=== PATIENT | male | born 1960 | race Caucasian/White ===

== ENCOUNTER 2018-08-03 22:43 | Inpatient (IN) | payer BC ==
[~2018-08-03] VITALS: Ht 177.8 cm; Wt 148.0 kg
[2018-08-03] MEDS ORDERED: ASPIRIN 81 MG CHEW TAB PO ONE (23:00)
[2018-08-03] MEDS ORDERED: NITROGLYCERIN 2% OINT 1 GM PKT TOP ONE (23:00)
[2018-08-03 23:37] LABS: BASOPHILS % 0.2 % (0.0-1.0); EOSINOPHILS # (AUTO) 0.2 (0.0-0.4); LYMPHOCYTES # (AUTO) 1.7 (1.0-3.2); LYMPHOCYTES % 15.4 % (18.0-39.1); MEAN CORPUSCULAR HEMOGLOBIN 29.4 pg (28-32); MEAN CORPUSCULAR HGB CONC 33.3 g/dL (31-35); MEAN CORPUSCULAR VOLUME 88.1 fL (81-99); MONOCYTES % 9.4 % (4.4-11.3); NEUTROPHILS # (AUTO) 7.8 (2.1-6.9); NEUTROPHILS % 72.6 % (38.7-80.0); PLATELET COUNT 247 x10e3/uL (140-360); RED BLOOD COUNT 5.45 x10e6/uL (4.3-5.7); RED CELL DISTRIBUTION WIDTH 13.6 % (11.7-14.4)
[2018-08-03 23:47] LABS: INR 0.86; PROTHROMBIN TIME 12.5 seconds (11.9-14.5)
[2018-08-03 23:48] LABS: PARTIAL THROMBOPLASTIN TIME 29.2 seconds (23.8-35.5)
[2018-08-03 23:57] LABS: ALANINE AMINOTRANSFERASE 19 IU/L (0-55); ALBUMIN 3.9 g/dL (3.5-5.0); ALKALINE PHOSPHATASE 96 IU/L (40-150); ANION GAP 15.8 mmol/L (8-16); BLOOD UREA NITROGEN 24 mg/dL (7-26); BUN/CREATININE RATIO 24 (6-25); CALCIUM 9.6 mg/dL (8.4-10.2); CARBON DIOXIDE 25 mmol/L (22-29); CHLORIDE 102 mmol/L (98-107); CREATINE KINASE 114 IU/L (30-200); CREATININE, SERUM 1.02 mg/dL (0.72-1.25); EST GLOMERULAR FILTRATION RATE > 60 ML/MIN (60-); GLUCOSE 156 mg/dL (74-118); POTASSIUM 3.8 mmol/L (3.5-5.1); SODIUM 139 mmol/L (136-145)
[2018-08-04] VITALS (9 sets, daily range): BP systolic 107–146; BP diastolic 63–78
--- NOTE | 2018-08-04 00:01 | Diagnostic Imaging Report ---
EXAMINATION: CHEST SINGLE (PORTABLE) INDICATION: CHEST PAIN COMPARISON: None FINDINGS: AP view TUBES and LINES: None. LUNGS: Lungs are well inflated. Lungs are clear. There is no evidence of pneumonia or pulmonary edema. PLEURA: No pleural effusion or pneumothorax. HEART AND MEDIASTINUM: The cardiomediastinal silhouette is unremarkable. BONES AND SOFT TISSUES: No acute osseous lesion. Soft tissues are unremarkable. UPPER ABDOMEN: No free air under the diaphragm. IMPRESSION: No acute thoracic abnormality. Signed by: DR. Gerald Alvarez MD on 08/03/2018 11:57 PM
[2018-08-04 00:03] LABS: BACTERIA,URINE FEW /HPF; BILIRUBIN,URINE NEGATIVE (NEGATIVE); CLARITY,URINE CLEAR (CLEAR); COLOR,URINE YELLOW (YELLOW); EPITHELIAL CELLS,URINE FEW /LPF; KETONES,URINE NEGATIVE (NEGATIVE); LEUKOCYTE ESTERASE ,URINE NEGATIVE (NEGATIVE); NITRITE,URINE NEGATIVE (NEGATIVE); PROTEIN,URINE DIPSTICK NEGATIVE (NEGATIVE); URINE UROBILINOGEN 0.2 mg/dL (0.2 - 1); WBC,URINE (MAN) 0-5 /HPF (0-5)
[2018-08-04 00:04] LABS: MUCUS,URINE MANY (RARE)
[2018-08-04] MEDS ORDERED: ONDANSETRON HCL INJ 2MG/ML 2ML 2 MG/ML VIAL IV PRN (00:45)
[2018-08-04] MEDS ORDERED: CLOPIDOGREL BISULFATE 75 MG TAB PO ONE (00:45)
[2018-08-04] MEDS ORDERED: SODIUM CHLORIDE FLUSH 10 ML SYR INJ PRN (00:45)
[2018-08-04] MEDS ORDERED: ASPIRIN 81 MG CHEW TAB PO ONE (00:45)
--- OUTSIDE RECORDS SUMMARY | 2018-08-04 00:56 | XMS REPORT ---
Author Author [facility] Address Unknown Phone Unavailable Care Team Providers Care Filler Feeder Name Role Phone Israel TIPTON Unavailable Unavailable Problems This patient has no known problems. Allergies, Adverse Reactions, Alerts This patient has no known allergies or adverse reactions. Medications This patient has no known medications. Results Test Description Test Time Test Comments Text Results Atomic Results Result Comments CHEST SINGLE (PORTABLE) 2018-08-03 23:56:00 [place] [address] Patient Name: ESTIVEN MARTE MR #: [id number] : 1960 Age/Sex: 57/M Req #: [id number] Adm Physician: Ordered by: MANUEL TIPTON MD Report #: [id number] Location: ER Room/Bed: Procedure: [id number] DX/CHEST SINGLE (PORTABLE) Exam Date: 08/03/18 Exam Time: 2320 REPORT STATUS: Signed EXAMINATION: CHEST SINGLE (PORTABLE) INDICATION: CHEST PAIN COMPARISON: None FINDINGS: AP view TUBES and LINES: None. LUNGS: Lungs are well inflated. Lungs are clear. There is no evidence of pneumonia or pulmonary edema. PLEURA: No pleural effusion or pneumothorax. HEART AND MEDIASTINUM: The cardiomediastinal silhouette is unremarkable. BONES AND SOFT TISSUES: No acute osseous lesion. Soft tissues are unremarkable. UPPER ABDOMEN: No free air under the diaphragm. IMPRESSION: No acute thoracic abnormality. Signed by: DR. Gerald Alvarez MD on 08/03/2018 11:57 PM Dictated By: GERALD ALVAREZ MD Transcribed By: ZULEYMA on 08/03/182356 COPY TO: MANUEL TIPTON MD
[2018-08-04] MEDS: FAMOTIDINE 20 MG/2 ML VIAL IV SCH ×3 (01:10→23:49)
[2018-08-04] MEDS ORDERED: ACETAMINOPHEN 325 MG TAB PO PRN (01:30)
[2018-08-04] MEDS ORDERED: ACETAMINOPHEN 325 MG TAB PO ONE (01:30)
--- NOTE | 2018-08-04 03:50 | NUR ---
Patient received via stretcher from ER accompanied by brother. Admission history obtained and Initial Physical assessment conducted. Patient is AAO x 4. Patient had no complaints of chest pain. Respirations even and non-labored. Telemetry in place. Patient oriented to room, call light and plan of care. Bed locked and in lowest position. Bed rails up x 2. Patient instructed to call for assistance when needed. Call light within reach.
--- NOTE | 2018-08-04 06:14 | NUR ---
Dr. George Lopez notified of "Routine Consult:. Reason for Consultation: Chest Pain
[2018-08-04] MEDS: NITROGLYCERIN 2% OINT 1 GM PKT TOP SCH ×2 (07:15→12:00)
--- NOTE | 2018-08-04 07:15 | NUR ---
Bedside rounding was completed and the pt. comp of headache from the nitrobid. He was medicated with tylenol for the headache and has no other complaints.
[2018-08-04 08:13] LABS: CREATINE KINASE MB 1.6 ng/mL (0-5.0)
[2018-08-04 08:56] LABS: THYROID STIMULATING HORMONE 1.074 uIU/mL (0.350-4.940)
[2018-08-04] MEDS: METOPROLOL TARTRATE 25 MG TAB PO SCH ×2 (09:19→17:28)
[2018-08-04] MEDS: ASPIRIN 81 MG ENTERIC COATED PO SCH (09:19)
[2018-08-04] MEDS: CLOPIDOGREL BISULFATE 75 MG TAB PO SCH (09:20)
--- NOTE | 2018-08-04 09:34 | Consultation ---
DATE OF CONSULTATION: August 04, 2018 REASON FOR CONSULTATION: Chest pain. CHIEF COMPLAINT: Chest pain. HPI: This is a 57-year-old male with a history of CAD, hypertension, hyperlipidemia. Patient presents to [facility] ER with 1-month history of chest pain. Reports it as substernal and radiates to his left arm with and without activities. Some degree of nausea and shortness of breath reported during the episodes. However, states it has been going on for the past month. Currently, the patient reports he is doing fine. No acute distress. Initial enzymes negative at 0.1. EKG showing nonspecific S/T changes. Patient reports that he has not been taking any kind of cardiac medications since over 8 years ago when he had his stents placed in [place], [place]. Currently, the patient is comfortable. No acute distress. PAST MEDICAL HISTORY: CAD, status post PCI about 8 years ago in [place], [place], hypertension, hyperlipidemia, obstructive sleep apnea. PAST SURGICAL HISTORY: Tonsillectomy and cardiac stents. SOCIAL HISTORY: He is . 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 Denies any tobacco use. Social alcohol use. FAMILY HISTORY: Mother apparently with complications of being a smoker. Father apparently from complications of lung cancer. HOME MEDICATIONS: None. ALLERGIES: MORPHINE. REVIEW OF SYSTEMS GENERAL: Denies any weight changes, any fatigue, weakness, fevers, chills, night sweats. SKIN: No rashes or bruises or sores. HEENT: Denies any vision changes, any blurred vision, double vision, any epistaxis, any soreness, sore throat, hoarseness, or sore neck. CARDIAC: Chest pain as above. Denies any palpitations. Positive for dyspnea on exertion. Denies any orthopnea, any PND or any lower extremity. RESPIRATORY: Positive for shortness of breath. Denies any coughing, hemoptysis. GI: Good appetite. No nausea, vomiting, diarrhea, constipation, any hematemesis, melena. URINARY: Denies any frequency, dysuria, nocturia. VASCULAR: Denies any lower extremity edema, claudication. MUSCULOSKELETAL: Reports good muscle strength throughout. Positive for generalized joint pains. NEUROLOGIC: Denies any numbness, tingling, tremors, weakness, paralysis, blackouts, seizures. HEMATOLOGY: Denies any anemia, easy bruising. ENDOCRINE: Denies any heat or cold intolerance, any polyuria, polydipsia. PHYSICAL EXAMINATION VITALS: Height 70 inches, weight 326 pounds, BMI 46. Temperature 96.8, pulse 63, respiratory rate 18, blood pressure 145/71, sats 95% on room air. GENERAL: Appears stated age. Reliable informant. No acute distress. SKIN: No rashes. No bruises. No sores. HEENT: Normocephalic. Pupils equal, round and reactive. Extraocular movements intact. Trachea midline. No JVD. No carotid bruits appreciated. HEART: Regular rate and rhythm. PMI about 4th to 5th intercostal space. LUNGS: Bilateral breath sounds clear to auscultation. ABDOMEN: Soft, nontender and nondistended. No organomegaly noted. MUSCULOSKELETAL: Good muscle strength throughout bilaterally. VASCULAR: Plus 2 bilateral radial pulses, +2 DP and PT pulses bilaterally. NEUROLOGIC: Cranial nerves II-XII seem intact. LABS: White count 10, hemoglobin 16, hematocrit 48, and platelets 247,000. Chemistry: Sodium 139, potassium 3.8, chloride 102, bicarb 25, BUN 24, creatinine 1.02. Troponin 0.1. Repeat 0.1. BNP 12. Chest x-ray with no acute thoracic abnormalities. EKG is normal sinus rhythm with nonspecific S/T changes. ASSESSMENT AND PLAN 1. Coronary artery disease with chest pain. 2. Hypertension. 3. Hyperlipidemia. 4. Obstructive sleep apnea. 5. Obesity. PLAN: Patient presents with a 1-month history of chest pains with mixed features. EKG is negative for any acute changes suggestive of an acute event. Cardiac enzymes negative times 2 thus far. Since the patient has not been on any medical therapy for the past 8 years, will start the patient on aggressive cardiac medical therapy of aspirin, Plavix, statin, beta julianna. The patient has been . Will go ahead and get an echo to evaluate heart function and structure. For the time being, as mentioned will proceed with aggressive medical therapy, and re-evaluate as clinical course dictates. Thank you very much for this consult. Will follow the patient's progression. DICTATED BY SHRUTI CANCINO NP Job#: [id number] PA
[2018-08-04] MEDS ORDERED: ENOXAPARIN SODIUM INJ 100 MG/ML SYR SC ONE (09:45)
--- NOTE | 2018-08-04 13:18 | History and Physical ---
CHIEF COMPLAINT: Chest pain. HISTORY OF PRESENT ILLNESS: This is a 57-year-old, morbidly obese, male who has a history of CAD with 2 stents placed about 8 years ago in [place], who comes into the ED with complaints of substernal chest pain ongoing for the last 6 weeks. The patient reports that he is originally from [place] and came here to do some work. Currently he is residing here. He is in the process of moving here to the [place] area. The patient reports that he has been having this substernal pressure and chest pain. It felt more like a pressure-like sensation with radiation to the left shoulder and arm. He denies any nausea or vomiting. Denies any palpitations. Patient was seen and evaluated at bedside on the medical floor. Currently doing well with no other complaints. REVIEW OF SYSTEMS PERTINENT POSITIVES: Chest pain, crushing. PERTINENT NEGATIVES: Denies any palpitations, nausea, vomiting, diarrhea, dysuria, hematuria, frequency, urgency, lightheadedness, dizziness, abdominal pain, headache, shortness of breath, cough, congestion, fever, or any other complaints. Rest of 14-point review of systems have been reviewed with the patient and are negative. ALLERGIES. MORPHINE. HOME MEDICATIONS: He does not take any. PAST MEDICAL HISTORY: CAD, status post PCI 8 years ago in [place], [place]. Hypertension, hyperlipidemia, obstructive sleep apnea. SURGICAL HISTORY: He had a left heart cath 8 years ago. He had tonsillectomy. FAMILY HISTORY: Hypertension and diabetes. SOCIAL HISTORY: No drugs. No alcohol. Does not smoke. 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 VITAL SIGNS: Temperature 96.3, pulse 82, respiratory rate 20, blood pressure 131/78, pulse ox 99% on room air. LAB FINDINGS: White count 10.7, hemoglobin 16, hematocrit 48, platelets 247. Coagulation: PT 12, INR 0.86, PTT 29. Chemistries: Sodium 139, potassium 2.8, chloride 102, bicarb 25, anion gap 15, BUN 24, creatinine 1. Glucose is 166. Calcium is 9.6. Total bilirubin 0.5, AST 17, ALT 19. Troponin is 0.107. BNP 12. Albumin 3.9. LDL was 139. TSH was 1. Urinalysis is negative. IMAGING STUDIES: Chest x-ray was found to be negative. PHYSICAL EXAMINATION GENERAL: Not in acute distress. Alert and oriented x3. Cooperative on examination. HEENT: Head is normocephalic, atraumatic. Eyes: Pupils are equal and reactive to light bilaterally. The extraocular movements are intact bilaterally. NECK: Supple. Good range of motion. Throat: No evidence of any erythema or exudates in the posterior pharynx. Has poor dentition. PULMONARY: Clear to auscultation bilaterally. No wheezing, no rales, no rhonchi, no crackles appreciated. CARDIOVASCULAR: Positive S1 and S2. No murmurs, rubs, or gallops appreciated. ABDOMEN: Soft. Nontender and nontender to palpation. Bowel sounds are present. MUSCULOSKELETAL: Strength is 5/5 throughout. No evidence of any musculoskeletal deficits on examination. No weakness appreciated. NEUROLOGICAL: Cranial nerves II through XII are grossly intact. No evidence of any neurological deficits on exam. SKIN: Intact. Warm to touch. Good cap refill. PSYCHIATRIC: Normal affect and mood. EXTREMITIES: No edema. Good range of motion throughout. IMPRESSION 1. Chest pain, rule out acute coronary syndrome with history of coronary artery disease in the past. 2. Hypertension. 3. Hyperlipidemia. 4. Obstructive sleep apnea. 5. Morbid obesity. PLAN: At this time he is scheduled for a left heart cath tomorrow by cardiology. Will continue the cardioprotective medications. He is n.p.o. after midnight. We will start on antihypertensive medications. Start on Lipitor for statin and aspirin as well. He will need a sleep study as an outpatient with a chief of safety and protection. Discussed diet and exercise with the patient. Will continue to follow with cardiology's recommendations. Likely after the cath tomorrow, if no complications, he will likely be discharged home. Otherwise, we will continue with the same plan of care and monitor closely. Job#: [id number]
[2018-08-04 16:01] LABS: CREATINE KINASE MB 1.3 ng/mL (0-5.0)
--- NOTE | 2018-08-04 19:39 | NUR ---
Received change of shift report from AM nurse. Bedside report received.
[2018-08-04] MEDS: ATORVASTATIN 20 MG TAB PO SCH (20:27)
--- NOTE | 2018-08-04 22:03 | NUR ---
Patient in sitting position in bed. Denies pain at this time. IV to left Ac dry and intact. Tele #[id number] SB 54. AAOx3 Ambulates with no difficulty noted. Patient NPO after MN. Patient is aware.
[2018-08-05] VITALS (24 sets, daily range): BP systolic 109–172; BP diastolic 52–96
--- NOTE | 2018-08-05 00:32 | NUR ---
Patient resting quitly at this time. Continue monitor.
--- NOTE | 2018-08-05 01:52 | NUR ---
Tele called and stated pt HR at 46 BPM. Check pt he was snoring with no noted discomfort. 15 min later pt states small pain =2 to left chest but not very bad. Patient refused pain meds at this time. HR back up to 70 BPM. Will report to .
[2018-08-05] MEDS ORDERED: SODIUM CHLORIDE 0.9% 1000ML 1,000 ML IV SCH (05:00)
[2018-08-05 05:27] LABS: BASOPHILS % 0.3 % (0.0-1.0); EOSINOPHILS # (AUTO) 0.4 (0.0-0.4); EOSINOPHILS % 3.6 % (0.0-6.0); HEMATOCRIT 48.4 % (38.2-49.6); HEMOGLOBIN 15.8 g/dL (14.0-18.0); LYMPHOCYTES # (AUTO) 2.1 (1.0-3.2); LYMPHOCYTES % 21.5 % (18.0-39.1); MEAN CORPUSCULAR HEMOGLOBIN 29.3 pg (28-32); MEAN CORPUSCULAR HGB CONC 32.6 g/dL (31-35); MEAN CORPUSCULAR VOLUME 89.6 fL (81-99); MONOCYTES # (AUTO) 1.1 (0.2-0.8); MONOCYTES % 11.4 % (4.4-11.3); NEUTROPHILS # (AUTO) 6.2 (2.1-6.9); NEUTROPHILS % 62.8 % (38.7-80.0); PLATELET COUNT 238 x10e3/uL (140-360); RED CELL DISTRIBUTION WIDTH 13.6 % (11.7-14.4)
--- NOTE | 2018-08-05 07:05 | NUR ---
RCD PT AT BED PT IS ALERT AND ORIENTED PT RESTING ON BED NO SIGNS OF ANY DISTRESS NOTED IV PATENT PT NPO FOR PROCEDURE BED LOW AND LOCKED CALL LIGHT IN REACH
--- NOTE | 2018-08-05 07:08 | NUR ---
Change of shift report given to incoming nurse.
[2018-08-05 08:21] LABS: ALANINE AMINOTRANSFERASE 16 IU/L (0-55); ALBUMIN 3.5 g/dL (3.5-5.0); ALBUMIN/GLOBULIN RATIO 1.1 (0.8-2.0); ALKALINE PHOSPHATASE 84 IU/L (40-150); CALCIUM 9.2 mg/dL (8.4-10.2); CARBON DIOXIDE 24 mmol/L (22-29); CHLORIDE 102 mmol/L (98-107); CHOL/HDL RATIO 4.7 (3.9-4.7); CHOLESTEROL 219 MD/DL (0-199); CREATININE, SERUM 0.78 mg/dL (0.72-1.25); EST GLOMERULAR FILTRATION RATE > 60 ML/MIN (60-); GLUCOSE 118 mg/dL (74-118); HDL CHOLESTEROL 47 MG/DL (40-60); LDL CHOLESTEROL 133 MG/DL (60-130); SODIUM 136 mmol/L (136-145); TRIGLYCERIDES 193 MG/DL (0-149)
[2018-08-05 08:32] LABS: BLOOD UREA NITROGEN 18 mg/dL (7-26); BUN/CREATININE RATIO 23 (6-25)
[2018-08-05] MEDS: METOPROLOL TARTRATE 25 MG TAB PO SCH ×2 (09:00→16:49)
[2018-08-05] MEDS: ASPIRIN 81 MG ENTERIC COATED PO SCH (09:00)
[2018-08-05] MEDS: CLOPIDOGREL BISULFATE 75 MG TAB PO SCH (09:00)
[2018-08-05] MEDS ORDERED: MIDAZOLAM HCL 2 MG/2 ML VIAL ONE (09:12)
[2018-08-05] MEDS ORDERED: SODIUM CHLORIDE 0.9% 1000ML 1,000 ML ONE (09:13)
[2018-08-05] MEDS ORDERED: IOPAMIDOL 370 MG/ML 200 ML INFUS..BTL INJ ONE ×2 (09:13→09:55)
[2018-08-05] MEDS ORDERED: LIDOCAINE HCL 2% LOCAL 20 ML VIAL ONE (09:13)
[2018-08-05] MEDS ORDERED: HEPARIN SOD/SOD CHLORIDE 2,000 ML ONE (09:13)
[2018-08-05] MEDS ORDERED: FENTANYL CITRATE/PF 100MCG/2 ML INJ ONE (09:13)
[2018-08-05] MEDS ORDERED: VERAPAMIL HCL 2.5 MG/ML 2 ML VIAL ONE (09:20)
--- NOTE | 2018-08-05 09:25 | NUR ---
PT WENT TO PROCEDURE IN SAFE CONDITION
[2018-08-05] MEDS ORDERED: SODIUM CHLORIDE 0.9% 50ML 50 ML ONE (09:49)
[2018-08-05] MEDS ORDERED: BIVALRIUDIN 250 MG/VIAL VIAL IV ONE (09:49)
[2018-08-05] MEDS ORDERED: ASPIRIN 325 MG TAB ONE (10:19)
[2018-08-05] MEDS ORDERED: CLOPIDOGREL BISULFATE 75 MG TAB ONE (10:19)
[2018-08-05] MEDS: SODIUM CHLORIDE 0.9% 1000ML 1,000 ML IV SCH ×2 (10:37→23:25)
[2018-08-05] MEDS ORDERED: HYDROCODONE/APAP 5MG-325MG TAB PO PRN (10:45)
[2018-08-05] MEDS ORDERED: ONDANSETRON HCL INJ 2MG/ML 2ML 2 MG/ML VIAL IV PRN (10:45)
--- NOTE | 2018-08-05 10:45 | NUR ---
Received report from Tabitha NIXON. Reviewed medications given, procedural events and orders. Patient awake,alert,and orientedx3. Respirations even and unlabored on room air. TR band to right wrist has 14 ml of air and appears to be without signs or symptoms of active bleeding at this time. Palpable right radial pulse. IV to left antecubital with normal saline infusing at 75ml/hr.
--- NOTE | 2018-08-05 12:18 | NUR ---
Removed 2ml of air from right wrist TR band. No signs of active bleeding to right wrist site at this time. Palpable right radial pulse. Patient tolerated well. No distress noted at this time.
--- NOTE | 2018-08-05 12:26 | Progress Note ---
DATE: August 05, 2018 MEDICINE PROGRESS NOTE SUBJECTIVE: Patient is doing well post left heart cath. He had a stent in the LAD and a stent in the mid RCA. He is doing well post procedure. Patient was evaluated post procedure. OBJECTIVE VITAL SIGNS: Temperature is 98.1, pulse 56, respiratory rate is 17, blood pressure 127/66, pulse ox 96% on room air. LAB FINDINGS: White count 9.9, hemoglobin , hematocrit , platelets 230. Coagulation: PT 12, INR 0.86, PTT 29. Chemistries: Sodium 136, potassium 4, chloride 102, bicarb 24, anion gap of 14, BUN 18, creatinine 0.78, glucose is 118, hemoglobin A1c 5.9, calcium 9.2. LFTs were normal. Troponins were negative. LDL is 133. Urinalysis negative. IMAGING STUDIES: None. PHYSICAL EXAMINATION GENERAL: Not in acute distress. Alert and oriented x3. Cooperative on examination. HEENT: Head is normocephalic and atraumatic. Eyes: Pupils are equal and reactive to light bilaterally. Extraocular movements intact bilaterally. NECK: Supple. Good range of motion. Throat with no evidence of any erythema or exudates in the posterior pharynx. Has poor dentition. PULMONARY: Clear to auscultation bilaterally. No wheezing. No rales. No rhonchi. No crackles appreciated. CARDIOVASCULAR: Positive S1 and S2. No murmurs, rubs or gallops appreciated. ABDOMEN: Soft, nondistended, nontender to palpation. Bowel sounds present. MUSCULOSKELETAL: Strength is 5/5 throughout. No evidence of any musculoskeletal deficit on examination. No weakness appreciated. NEUROLOGICAL: Cranial nerves II through XII are grossly intact. No evidence of any neurological deficits on exam. SKIN: Intact. Warm to touch. Good cap refill. PSYCHIATRIC: Normal affect and mood. EXTREMITIES: No edema. Good range of motion throughout. IMPRESSIONS 1. Chest pain, now status post left heart catheterization with left anterior descending stent and mid right coronary artery stent, performed by cardiology today on 08/05/2018. 2. Hypertension. 3. Hyperlipidemia. 4. Obstructive sleep apnea. 5. Morbid obesity. PLAN: At this time, continue with aspirin, Plavix, cardioprotective meds, beta julianna, and statin. Patient will be kept overnight in order to monitor his stent and post procedurally. Discussed with cardiology. He will need an outpatient power plant operator apprentice for an outpatient sleep study. Otherwise, he is doing well. Will monitor him overnight and make him inpatient and discharge him likely tomorrow. Job#: [id number] TA
--- NOTE | 2018-08-05 12:33 | NUR ---
Removed 3 ml of air from right wrist TR band. No active bleeding at this time to right wrist. Palpable right radial pulse. Patient tolerated well. No distress noted at this time.
--- NOTE | 2018-08-05 12:44 | NUR ---
Removed 1ml of air from right wrist TR band. Palpable right radial pulse. No signs or symptoms of active bleeding at this time. Patient tolerated well. No distress noted.
--- NOTE | 2018-08-05 12:47 | NUR ---
Removed 1ml of air from right wrist TR band. TR band appears to be without signs or symptoms of active bleeding. Palpable right radial pulse. Patient tolerated well. No distress noted at this time.
--- NOTE | 2018-08-05 12:51 | NUR ---
Removed 1ml of air from right wrist TR band. No signs or symptoms of active bleeding at this time. Patient tolerated well. No distress noted. Palpable right radial pulse.
--- NOTE | 2018-08-05 12:54 | NUR ---
Removed 1ml of air from right wrist TR band. No signs or symptoms of active bleeding to right wrist site at this time. Palpable right radial pulse. Patient tolerated well. No distress noted at this time.
--- NOTE | 2018-08-05 12:58 | NUR ---
Removed 1ml of air from right wrist TR band. No signs or symptoms of active bleeding at this time.Palpable right radial pulse. No distress noted at this time.
--- NOTE | 2018-08-05 13:01 | NUR ---
Removed 1ml of air from right wrist TR band. No signs of active bleeding to right wrist at this time. Palpable right radial pulse. No distress noted. Patient tolerated well.
--- NOTE | 2018-08-05 13:22 | NUR ---
Removed 1ml of air from right wrist TR band. No signs of acute bleeding at this time. Palpable right radial pulse. No distress noted.
--- NOTE | 2018-08-05 13:25 | NUR ---
Removed 1ml of air from right wrist TR band. No signs or symptoms of active bleeding at this time. No distress noted at this time. Will monitor patient.
--- NOTE | 2018-08-05 13:28 | Operative Report ---
DATE OF PROCEDURE: August 05, 2018 CARDIAC CATHETERIZATION REPORT PROCEDURES PERFORMED 1. Left heart cardiac catheterization with coronary angiography. 2. Left ventriculography. 3. Percutaneous coronary intervention with drug-eluting stent placement to the midright coronary artery. 4. Percutaneous coronary intervention with drug-eluting stent placement to the proximal left anterior descending. INDICATIONS FOR PROCEDURE: This is a 57-year-old man with a past medical history of hypertension, hypercholesterolemia, coronary artery disease, who presents to this institution with several week onset of typical angina symptoms with minimal activity and started developing chest pain at rest with instability in the last 48 hours. He came into the hospital and was treated initially conservatively with nitropaste. However, started having refractory symptoms. The patient due to his large obesity decided to proceed with cardiac catheterization from a radial approach. DESCRIPTION OF PROCEDURE: After risks, benefits, pros, and cons to today's procedure were explained, the patient agreed to proceed. The patient was brought to the cardiac catheterization laboratory on an urgent basis, and the right wrist was prepped and draped in the usual sterile fashion. Preprocedure Zac's and Barbeau's tests were noted to be normal. One percent lidocaine solution was used to numb the right wrist region. Access to the right radial artery was obtained, and a long 5-Uruguayan Terumo mobilized sheath was placed. Intra-arterial Verapamil at 2.5 mg and nitroglycerin at 200 mcg was given through the sheath. We proceeded with diagnostic coronary angiography. We took a 5-[place]ayan [place], 4 diagnostic catheter and selected the left and right coronary arteries, and placed the catheter in the ventricle for ventriculography and hemodynamic assessment of ventricular filling pressures and across the aortic valve. This revealed 99% mid-RCA lesion with BARTOLOME-II flow, as well as 99% proximal LAD lesion with BARTOLOME-II flow. We decided to proceed with intervention. The 5-Uruguayan Terumo glide sheath was upsized to a 6-Uruguayan slender sheath. We took a 6-Uruguayan M-radial guiding catheter and initially selected the right coronary artery. IV Angiomax bolus and drip was initiated. We took a 180 cm run through wire, and successfully crossed the wire into the right PDA. We next took a 2 x 50 mm Emerge balloon and predilated the lesion up to 10 atmospheres of pressure. Next, we took a Resolute [place] 3 x 18 mm drug-eluting stent and deployed that up to 12 atmospheres of pressure. Final angiography revealed zero percent residual stenosis and improvement of flow from BARTOLOME-II to BARTOLOME-III and no complications. At that point in time, we decided to focus our attention towards the LAD. The M Radial Guide was then utilized to select the left coronary artery. Utilizing the same 0.014 run through wire, we were able to cross the wire into the distal LAD. We went with a direct stenting strategy with a Resolute [place] 3.5 x 38 mm drug-eluting stent and deployed that up to 16 atmospheres of pressure. This improved the stenosis from 99% to zero percent residual stenosis and improvement of flow from BARTOLOME-II to BARTOLOME-III. At that point in time, we decided to conclude the case. The guiding catheter was removed with the J-wire. A Terumo TR band was applied utilizing patent hemostasis technique and 14 mL of air was placed. COMPLICATIONS: None. ESTIMATED BLOOD LOSS: None. FINDINGS 1. Left main is angiographically normal. Gives rise to an LAD and circumflex branch. 2. The LAD has a long diffusely diseased proximal LAD segment, which tapers down to a 99% napkin ring lesion in this area. The remainder of this LAD and its branches are with mild luminal irregularities. 3. Left circumflex artery is a large caliber vessel with a small midmarginal branch and a large bifurcating posterolateral marginal branch. There is a 30% mid to distal circumflex artery stenosis. 4. RCA is dominant and gives rise to a right PDA and right PLV. There is a 30% proximal RCA followed by a 99% mid-RCA stenosis. 5. Left ventricular ejection fraction is 60% with end-diastolic pressure of 18 mmHg. There is no significant LV or aortic pullback gradient. INTERVENTION SUMMARY 1. Successful treatment of the 99% proximal LAD lesion with implantation of a Resolute Rom 3.5 x 38 mm drug-eluting stent deployed up to 16 atmospheres of pressure resulting in zero percent residual stenosis and improvement of flow from BARTOLOME-II to BARTOLOME-III. No complications. 2. Successful treatment of the 99% mid-RCA lesion with implantation of a Resolute [place] 3 x 18 mm drug-eluting stent with improvement in flow from BARTOLOME-II to BARTOLOME-III and zero percent residual stenosis. PLAN/RECOMMENDATIONS 1. Aspirin and Plavix therapy. 2. Statin therapy. 3. Modification of medical therapy. 4. Removal of TR band in approximately 2 hours. Job#: [id number] ALLEN CHERY
--- NOTE | 2018-08-05 13:29 | NUR ---
Removed 1ml of air from right wrist TR band. TR band removed from right wrist. Dressing applied per protocol to right wrist. Palpable right radial pulse. Dressing to right wrist is clean,dry, and intact.
--- NOTE | 2018-08-05 13:42 | NUR ---
Report called to Prudence Garcia RN. Reviewed medications given, orders, and procedural events. TR band removed at 1330 dressing applied to right wrist is clean,dry, and intact. Palpable right radial pulse. Educated patient on dressing care and activity restrictions. Educated patient and family on what signs and symptoms to look for: when to call the doctor and when to call 911. Prudence Garcia RN verbalized understanding and had no questions at this time.
--- NOTE | 2018-08-05 13:50 | NUR ---
Patient transported back to room 206. Bedside handoff with Prudence Garcia RN performed. No distress noted at time of transfer. Dressing clean,dry, and intact to right wrist at this time.
--- NOTE | 2018-08-05 14:00 | NUR ---
PT BACK AFTER PROCEDURE PT IS ALERT AND ORIENTED VITALS CHECKED PT RESTING ON BED NO SIGNS OF ANY DISTRESS NOTED INCISION ON THE RIGHT WRIST IS INTACT NO SIGNS OF ANY BLEEDING NOTED IV PATENT AND RUNNING 75 ML /HR BED LOW AND LOCKED CALL LIGHT IN REACH
--- NOTE | 2018-08-05 14:09 | NUR ---
CASE MANAGEMENT INITIAL ASSESSMENT Barista to bedside to discuss plan of care with patient/family. CM/SW role and care transitions discussed. Anticipated discharge plan discussed along with duration of care. CM/SW discussed patients right to make decisions in care. CM/SW work hours given. Patient lives: with ; stays with his brother when in [place] for work Admit/Transfer: thru ED Hospital/ER visits since last admit: none POA/Emergency contact: Estee Marley [phone] Current/Previous Home Health: none PCP/Follow-up Care: Dr. Kwon - PCP; will follow up with Dr. Lopez for cardiology Current/Previous DME: none Medications (referring to index hospitalization or the first time you were in the hospital) a. Were changes made in your medications when you were in the hospital on [date of index hospitalization]? n/a b. Did you understand the changes? n/a c. Were you able to obtain your new medications right away? n/a d. Were you able to take your medications like the doctor wanted you to? n/a e. Did the hospital give you an accurate, easy to understand list of medications when you left? 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 Name and number was also written on the patients whiteboard. Patient verbalized understanding of discussion. CM will follow-up with ongoing discharge and transition of care needs.
--- NOTE | 2018-08-05 18:53 | NUR ---
PT RESTING ON BED BED NO SIGNS OF BLEEDING ON THE RIGHT WRIST SIDE REPORT GIVEN TO ONCOMING NURSE
[2018-08-05] MEDS: ATORVASTATIN 20 MG TAB PO SCH (20:57)
[2018-08-05] MEDS: FAMOTIDINE 20 MG/2 ML VIAL IV SCH (23:24)
[2018-08-06 05:31] LABS: BASOPHILS % 0.4 % (0.0-1.0); EOSINOPHILS # (AUTO) 0.3 (0.0-0.4); HEMATOCRIT 46.5 % (38.2-49.6); HEMOGLOBIN 15.1 g/dL (14.0-18.0); LYMPHOCYTES % 24.1 % (18.0-39.1); MEAN CORPUSCULAR HGB CONC 32.5 g/dL (31-35); MEAN CORPUSCULAR VOLUME 89.3 fL (81-99); MONOCYTES % 11.4 % (4.4-11.3); NEUTROPHILS % 59.5 % (38.7-80.0); PLATELET COUNT 231 x10e3/uL (140-360); RED BLOOD COUNT 5.21 x10e6/uL (4.3-5.7); RED CELL DISTRIBUTION WIDTH 13.5 % (11.7-14.4)
[2018-08-06 05:55] LABS: ALANINE AMINOTRANSFERASE 16 IU/L (0-55); ALBUMIN 3.5 g/dL (3.5-5.0); ALBUMIN/GLOBULIN RATIO 1.2 (0.8-2.0); ALKALINE PHOSPHATASE 81 IU/L (40-150); ANION GAP 9.9 mmol/L (8-16); BLOOD UREA NITROGEN 22 mg/dL (7-26); BUN/CREATININE RATIO 28 (6-25); CALCIUM 8.9 mg/dL (8.4-10.2); CARBON DIOXIDE 23 mmol/L (22-29); CHLORIDE 101 mmol/L (98-107); CREATININE, SERUM 0.78 mg/dL (0.72-1.25); EST GLOMERULAR FILTRATION RATE > 60 ML/MIN (60-); GLUCOSE 109 mg/dL (74-118); POTASSIUM 3.9 mmol/L (3.5-5.1); SODIUM 130 mmol/L (136-145)
[2018-08-06 06:09] VITALS: BP 187/86
--- NOTE | 2018-08-06 07:00 | NUR ---
RCD PT AT BED PT IS ALERT AND ORIENTED PT RESTING ON BED NO SIGNS OF ANY DISTRESS NOTED IV PATENT FAMILY AT BED SIDE BED LOW AND LOCKED CALL LIGHT IN REACH
[2018-08-06 07:50] VITALS: BP 147/82
[2018-08-06 08:00] VITALS: BP 147/82
[2018-08-06] MEDS: METOPROLOL TARTRATE 25 MG TAB PO SCH (08:54)
[2018-08-06] MEDS: ASPIRIN 81 MG ENTERIC COATED PO SCH (08:54)
[2018-08-06] MEDS: CLOPIDOGREL BISULFATE 75 MG TAB PO SCH (08:55)
[2018-08-06] MEDS ORDERED: PLAVIX75 MG PO (10:34)
[2018-08-06] MEDS ORDERED: METOPROLOL SUCC25 MG PO (10:35)
[2018-08-06] MEDS ORDERED: LISINOPRIL2.5 MG PO (10:35)
[2018-08-06] MEDS ORDERED: ASPIR 8181 MG PO (10:36)
[2018-08-06] MEDS ORDERED: LIPITOR20 MG PO (10:36)
--- NOTE | 2018-08-06 12:15 | NUR ---
PT WENT HOME IN SAFE CONDITION WITH HIS
--- NOTE | 2018-08-06 12:49 | Discharge Summary ---
FINAL DISCHARGE DIAGNOSES 1. Status post left heart catheterization with stent placement in left anterior descending and mid right coronary artery, performed by cardiology on 08/05/2018. 2. Hypertension. 3. Hyperlipidemia. 4. Obstructive sleep apnea. 5. Morbid obesity. CONSULTANTS: Cardiology. VITAL SIGNS: Temperature is 96, pulse 62, respiratory rate is 19, blood pressure 147/82, pulse ox 97% on room air. LAB FINDINGS: Show a white count of 8.3, hemoglobin 15, hematocrit of 46, platelets of 231. Coagulation: PT 12, INR 0.86, PTT 29. Chemistries: sodium 130, potassium 3.6, chloride 101, bicarb 23, anion gap 9.9, BUN 22, creatinine 0.78. Hemoglobin A1c is 5.9. Troponins were negative. BNP was 12. LDL was 133. TSH is 1. Urinalysis negative. MICROBIOLOGY: None. IMAGING STUDIES: Chest x-ray found to be negative. HOSPITAL COURSE: This is a 57-year-old male, morbidly obese, noncompliant with medical care, comes in to the ED with complaints of substernal chest pain ongoing for the last several weeks prior to arrival to the ED. Cardiology was consulted. Cardiac enzymes were trended, found to be negative. Patient's story was very classic and underwent a left heart cath in which the patient had 2 stents placed. Patient had PCI placed in the mid LAD and a stent placed into the mid RCA. Patient did well post procedure. Patient was started on aspirin, Plavix, and YOLY inhibitor, as well as beta blockers. On discharge, patient was discharged on the same medication regimen as well. He is advised to continue with this regimen daily and he was also highly educated about taking his Plavix and aspirin for at least a year but must follow up with a speed belt sander tender in 2 weeks. Patient verbalized understanding. On the day of discharge, vital signs stable, labs reviewed and stable. Patient was seen and evaluated, examined thoroughly on the day of discharge without any complaints. Patient verbalized understanding and agreed with plan of care, to follow up accordingly as an outpatient with the primary care physician in 1 week and speed belt sander tender in 2 weeks' time. MEDICATIONS: See med reconciliation form. DISPOSITION: To home. CONDITION: Stable. DIET: Heart healthy. In the event of any worsening symptoms, patient advised to come back to the ED for further evaluation. Discharge summary took greater than 35 minutes. ONEIL RAMIREZ MD Job#: [id number] TA
== END 2018-08-06 12:15 | disposition home or self-care (01) | DRG 247 ==
LOC: ER 22:43 → ERHOLD 08-04 00:54 → MED/SURG2 08-04 01:59 → OBSVTOIN 08-05 12:12
PROVIDERS: ADMIT Internal Medicine; ATTEND Internal Medicine
PROC: 027135Z Dilation of Coronary Artery, Two Arteries with Two Drug-eluting Intraluminal Devices, Percutaneous Approach (ICD-10-PCS; principal; 2018-08-05)
PROC: 02703ZZ Dilation of Coronary Artery, One Artery, Percutaneous Approach (ICD-10-PCS; 2018-08-05)
PROC: 4A023N7 Measurement of Cardiac Sampling and Pressure, Left Heart, Percutaneous Approach (ICD-10-PCS; 2018-08-05)
PROC: B3101ZZ Fluoroscopy of Thoracic Aorta using Low Osmolar Contrast (ICD-10-PCS; 2018-08-05)
PROC: B2111ZZ Fluoroscopy of Multiple Coronary Arteries using Low Osmolar Contrast (ICD-10-PCS; 2018-08-05)
PROC: B2151ZZ Fluoroscopy of Left Heart using Low Osmolar Contrast (ICD-10-PCS; 2018-08-05)
DX: I25.10 Atherosclerotic heart disease of native coronary artery without angina pectoris (principal); Z68.42 Body mass index [BMI] 45.0-49.9, adult; I10 Essential (primary) hypertension; E78.5 Hyperlipidemia, unspecified; Z95.5 Presence of coronary angioplasty implant and graft; G47.33 Obstructive sleep apnea (adult) (pediatric); E66.01 Morbid (severe) obesity due to excess calories
CPT/HCPCS: 36415; 71045; 80053; 80061; 81001; 82550; 82553; 82948; 83036; 83880; 84443; 84484; 85025; 85610; 85730; 92928; 92929; 93005; 93306; 93458; 99284; C1725; C1874; C1887; G0378; J0583; J1650; J2001; J2250; J7030; Q9967